=== PATIENT | male | born 1990 ===

== ENCOUNTER 2025-05-07 12:12 | Emergency (ER) | payer OTHER, SELFPAY ==
[2025-05-07 12:22] VITALS: BP 169/112; PULSE 127; RESP 20; TEMP 36.7; O2SAT 100; BMI 25.1
[2025-05-07 13:35] VITALS: BP 172/103; PULSE 112; RESP 18; O2SAT 98
--- NOTE | 2025-05-07 19:22 | ED_ITS ---
HPI - Alcohol General Chief Complaint: Toxicology Problem Stated Complaint: stopped drinking 2 days ago, wants him seen Time Seen by Provider: 05/07/25 12:30 Source: patient Mode of arrival: Family Vehicle History of Present Illness HPI narrative: 34-year-old male presents to the ED with alcohol withdrawal symptoms after cessation of drinking for the last 2 days. Patient states that he frequently binges and that he drinks a lot. He has tried to stop several times cold turkey, has mild alcohol withdrawal symptoms that seemed to have resolved without medications. He presents to the ED today since he works in the [employer], and by protocol he has to be evaluated by a medical provider for this. Patient states that he stopped drinking 2 days ago, has since then developed some alcohol withdrawal symptoms including mild to moderate tremors, mild anxiety. CIWA score in the ED was a 4. Patient denies chest pain, shortness of breath, fever, chills, sweating, nausea, vomiting, lightheadedness, dizziness, syncope. No history of seizures during alcohol withdrawal. Patient also has scheduled counseling for the alcohol abuse which is to start in the next few days. Patient very much would like to stop drinking. Related Data Previous Rx's ?Medication ?Instructions ?Recorded chlordiazepoxide HCl 25 mg capsule See Rx Instructions .Route 05/07/25 .COMPLEX PRN alcohol withdrawal #11 caps Allergies Allergy/AdvReac Type Severity Reaction Status Date / Time No Known Drug Allergies Allergy Verified 05/07/25 12:21 Review of Systems Constitutional Constitutional: Denies chills, Denies fatigue, Denies fever(s), Denies frequent falls, Denies lethargy and Denies weakness Eyes Eyes: Denies change in vision, Denies eye discharge, Denies irritation and Denies loss of vision ENT Ears, Nose, Mouth, and Throat: Denies change in voice, Denies dizziness, Denies neck pain, Denies sore throat and Denies throat swelling Cardiovascular Cardiovascular: Denies chest pain, Denies irregular heart rhythm, Denies lightheadedness, Denies palpitations, Denies dyspnea, Denies dyspnea on exertion and Denies orthopnea Respiratory Respiratory: Denies cough, Denies dyspnea, Denies dyspnea on exertion and Denies wheezing Gastrointestinal Gastrointestinal: Denies abdominal pain, Denies change in bowel habits, Denies diarrhea, Denies nausea and Denies vomiting Musculoskeletal Musculoskeletal: Denies neck pain and Denies numbness Integumentary/Breasts Skin/Breast: Denies pruritus, Denies erythema, Denies rash and Denies wounds Neurologic Neurologic: Denies behavioral changes, Denies confusion, Denies dizziness, Denies frequent falls, Denies loss of vision, Denies numbness, Reports tremor(s) and Denies weakness Psychiatric Psychiatric: Reports anxiety, Denies behavioral changes, Denies confusion, Denies depression, Denies homicidal ideation and Denies suicidal ideation Endocrine Endocrine: Denies fatigue, Denies flushing and Denies palpitations Hematologic/Lymphatic Hematologic/Lymphatic: Denies easy bruising Allergic/Immunologic Allergic/Immunologic: Denies urticaria, Denies throat swelling and Denies wheezing Patient History Social History Smoking Status: Current every day smoker Smoking Status: Current every day smoker tobacco type: vaping Alcohol type: hard liquor Exam Narrative Exam Narrative: Const General:?cooperative, healthy appearing and comfortable HENTN Head:?normal to inspection Ears:?hearing grossly normal bilaterally Nose:?external nose normal Face and sinus:?normal facial exam and sinuses nontender Mouth:?oral mucosae normal Throat:?posterior oropharynx normal Eyes General:?appearance normal, both eyes and all related structures Neck Neck:?normal visual inspection and no lymphadenopathy noted Resp Effort & Inspection:?normal respiratory effort Auscultation:?clear to auscultation bilaterally Cardio Rate:?regular rate Rhythm:?regular rhythm Psych Mild anxiety, no agitation Neuro General:?patient alert, patient awake and patient oriented x3; moderate and tremors; CIWA 4 Initial Vital Signs Initial Vital Signs: Vital Signs Temperature 98.1 F 05/07/25 12:22 Pulse Rate 127 H 05/07/25 12:22 Respiratory Rate 20 05/07/25 12:22 Blood Pressure 169/112 H 05/07/25 12:22 Pulse Oximetry 100 05/07/25 12:22 Oxygen Delivery Method Room Air 05/07/25 12:22 Course Vital Signs Vital signs: Vital Signs - 8 hr 05/07/25 12:22 05/07/25 13:35 Temperature 98.1 F Pulse Rate 127 H 112 H Respiratory Rate 20 18 Blood Pressure 169/112 H 172/103 H Pulse Oximetry 100 98 Oxygen Delivery Method Room Air Room Air MDM - Alcohol MDM Narrative Medical decision making narrative: 34-year-old male presents to the ED with alcohol withdrawal symptoms after cessation of drinking for the last 2 days. CIWA score in the ED is for. Patient is experiencing very mild alcohol withdrawal symptoms. Patient expresses a strong desire to stop drinking. Discussed with patient that he could take a Librium taper that would allow him to stopped drinking in a safe manner. He agrees to follow-up with the counseling. Prescribed a Librium taper. Counseled patient on severity of alcohol withdrawal symptoms. ED return precautions were discussed with patient. Patient verbalized understanding. Medical records reviewed: Yes Discharge Plan Departure Patient Disposition: Home Clinical Impression: Alcohol withdrawal Qualifiers: Complication of substance-induced condition: uncomplicated Qualified Code(s): F10.930 - Alcohol use, unspecified with withdrawal, uncomplicated Instructions: Alcohol Withdrawal Activity Restrictions/Additional Instructions: You were evaluated in the emergency department today for alcohol withdrawal. It is reassuring to note that you are wanting to stop drinking, however you are experiencing some symptoms of alcohol withdrawal. It is also reassuring to note that you have some counseling arranged to start shortly. In order for you to successfully stopped drinking without symptoms and safely, you are being prescribed medications to take for the next 3-4 days. Please take them as presc ribed. Please do note that alcohol withdrawal can include some very serious symptoms such as seizures, coma and . If at all your symptoms worsen despite taking the medications, please return to the ED for further evaluation. Prescriptions: New chlordiazepoxide HCl 25 mg capsule See Rx Instructions .ROUTE .COMPLEX PRN (Reason: alcohol withdrawal) Qty: 11 0RF Rx Instructions: 50mg of chlordiazepoxide every 8 hours for two days, then decrease to 25mg every 8 hours for another two days followed by 25mg PRN as needed. Stand Alone Forms: Patient Portal/API
== END 2025-05-07 13:36 | disposition home or self-care (01) ==
PROVIDERS: Emergency Provider Student in an Organized Health Care Education/Training Program
DX: F10.930 Alcohol use, unspecified with withdrawal, uncomplicated (principal); G25.2 Other specified forms of tremor
CPT/HCPCS: 99281; 99282